=== PATIENT | male | born 1985 | race Caucasian/White ===

== ENCOUNTER 2025-02-17 02:58 | Emergency (ER) | payer OTHER, SELFPAY ==
[2025-02-17 03:01] VITALS: BP 168/106
[2025-02-17] MEDS: DUONEB 3 ML INH (03:08)
--- NOTE | 2025-02-17 03:08 | ED.GENMED ---
History of Present Illness
General
Chief Complaint: Breathing Problem
Source: patient and other ([employer]ables who are accompanying the patient)
Exam Limitations: none
Time Seen by Provider: 02/17/25 03:04
Nursing documentation reviewed up to this point in time: agreed with
History of Present Illness
History of Present Illness:
This is a 39-year-old gentleman who has history of asthma, maintained on inhaled corticosteroid/LABA as well as uses albuterol for as needed asthma flares. He complains of increased cough and wheezing over the past few days without fever. Cough
has been dry. He denies sore throat or nasal congestion. Similar asthma exacerbations with last occurring perhaps a year ago.
He presents, accompanied with constables. Had been taken to [facility] but due to asthma exacerbation and noted to be hypertensive, he was sent from the long term to the ED for further evaluation.
No prior history of hypertension but does admit that his blood pressure tends to be elevated with asthma exacerbations.
He does smoke cigarettes, has been attempting to quit.
No recent travel. He denies leg pain or swelling. No chest pain. No change in weight.
Past History
Past History
ED Past Medical History: Asthma
Social History
Tobacco: Smoker
Employment: Not employed
Family History
Family History: Other (Noncontributory)
Phy Exam
Physical Exam
Physical Exam:
GENERAL: 39-year-old gentleman appears his stated age, awake and alert, pleasant, appears in no acute distress. Able to speak in full sentences.
EYE: pupils equal. anicteric
NECK: Supple, nontender, no meningismus, no significant adenopathy. No JVD.
ENT: posterior pharynx is clear, oral mucosa is moist. TM clear b/l, nares patent.
CARDIAC: Regular rate and rhythm. no murmur.
LUNGS: No respiratory distress. Diffuse expiratory wheezing bilaterally.
ABDOMEN: Soft, nondistended, without focal tenderness
NEUROLOGICAL: Alert and oriented x3, no focal neuro deficits. Gait is steady.
SKIN: Warm and dry, normal color, skin intact. No rash.
MUSCULOSKELETAL: No C/C/E. peripheral pulses are full and equal b/l. No palpable tenderness.
PSYCH: Normal and appropriate interaction.
Scores
Heart Failure Risk
Heart Failure Risk Score: Not Applicable
Course
Orders/Labs/Results
Orders:
Orders
02/17/25 03:05
Ipratropium/Albuterol Sulfate [Duoneb] 3 ml .ROUTE .STK-MED ONE
02/17/25 03:07
Ipratropium/Albuterol Sulfate [Duoneb] 3 ml INH R NOW STA
02/17/25 03:08
Prednisone [Deltasone] 60 mg PO NOW STA
Vital Signs
Initial and Last Documented VS:
Initial Vital Signs
BP
168/106
02/17/25 03:01
Last Documented Vital Signs
Pulse Resp BP Pulse Ox
77 20 168/106 95
02/17/25 03:04 02/17/25 03:04 02/17/25 03:01 02/17/25 03:02
MDM/Problems Addressed
Differential Diagnosis Includes:
39-year-old gentleman with history of asthma presents with acute exacerbation of asthma.
Denies recent fevers, no hemoptysis nor sputum production, nothing to suggest pneumonia nor CHF.
Noted to be mildly hypertensive which I suspect is secondary to asthma exacerbation.
Will treat with DuoNeb nebulizer and initiate a course of prednisone.
At this point no indication for laboratory studies nor imaging.
Chronic conditions affecting care: Asthma
Acute Exacerbation and/or Progression of Chronic Illness: Asthma
*Pulse Oximetry
Patient hypoxic: no
*Critical Care Note
Total Time (30-74mins, 75-104mins- exclusive of procedures): Not Applicable
Update Note
Update Note:
03:45
Patient reports relief of wheezing, shortness of breath after nebulizer treatment.
Resting comfortably.
Lungs with marked improvement in air movement, scant scattered end expiratory wheezing bilaterally otherwise clear to auscultation.
Mild systolic hypertension persist with improvement in diastolic hypertension currently 168/90. Again, I suspect hypertension is secondary to asthma exacerbation.
Will plan for tapering course of prednisone, continuing LABA/ICS, continue as needed albuterol inhaler.
Follow-up for recheck asthma and BP recheck with PCP versus long term health services.
At this point patient is medically stable and cleared for incarceration.
ED Attending Note
-
Portions of this chart may have been created with voice recognition software.� Occasional wrong word or��sound alike� substitutions may have occurred due to the inherent limitations of voice recognition software.
Discharge Plan
Departure
Patient Disposition: Detention
Date of Disposition: 02/17/25
Time of Disposition: 03:44
Patient with high blood pressure during this ER visit?: Yes
Condition: Good
Discharge Problem:
Acute asthma exacerbation, Blood pressure elevated without history of HTN
Instructions: Asthma, Adult (DC), BLOOD PRESSURE
Prescriptions:
New
prednisone 10 mg Tablet
See Rx Instructions .ROUTE .COMPLEX Qty: 30 0RF
Rx Instructions:
Take By Mouth:
40 mg daily x3 days, 30 mg daily x3 days,
20 mg daily x3 days, 10 mg daily x3 days.
albuterol sulfate 90 mcg/actuation aerosol powdr breath activated
2 inh inhalation QIDPRN PRN (Reason: shortness of breath or wheezing) Qty: 1 0RF
fluticasone propion-salmeterol [Wixela Inhub] 250-50 mcg/dose blister with device
1 inh inhalation BID Qty: 60 0RF
No Action
albuterol
Referrals:
UNKNOWN - PT DOES,NOT KNOW [Family Provider] - Call in 1-3 days for appt
Interventions
Interventions:
*Risk Screen - Suicide Last Done: 02/17/25 03:02
*General Assessment Last Done: 02/17/25 03:02
*Neglect/Abuse Screening Last Done: 02/17/25 03:02
*ED- Fall Risk Assessment Last Done: 02/17/25 03:02
*ED COVID-19 Vaccine History Last Done: 02/17/25 03:02
ED- Cardiac Assessment Last Done: 02/17/25 03:02
ED- Pulmonary Assessment Last Done: 02/17/25 03:02
Discharge Date and Time
Print Language: FRENCH
[2025-02-17] MEDS: DELTASONE 60 MG PO (03:34)
[2025-02-17 03:37] VITALS: BP 168/98
== END 2025-02-17 03:50 ==
LOC: EMR 02:58
PROVIDERS: EMERGENCY PHYSICIAN Emergency Medicine
DX: J45.901 Unspecified asthma with (acute) exacerbation (principal); R03.0 Elevated blood-pressure reading, without diagnosis of hypertension; F17.210 Nicotine dependence, cigarettes, uncomplicated
CPT/HCPCS: 94640; 99283